=== PATIENT | male | born 1980 | race Caucasian/White ===

== ENCOUNTER 2021-02-18 17:23 | Emergency (ER) | payer SELFPAY ==
--- NOTE | 2021-02-18 19:28 | EDM.PDOC ---
ED HPI GENERAL MEDICAL PROBLEM - General Chief Complaint: Chest Pain Stated Complaint: CHEST PAIN Time Seen by Provider: 02/18/21 17:57 Source of Information: Reports: Patient, RN Notes Reviewed History Limitations: Reports: No Limitations - History of Present Illness INITIAL COMMENTS - FREE TEXT/NARRATIVE: Patient is a 40-year-old male presenting to the emergency department with complaints of a 3-day history of left-sided chest pain as well as cough and congestion. Describes it as a left-sided chest pressure which results in a shooting pain to the area when he moves his left arm. He is concerned as his brother had a heart attack at the age of 26. He denies any dizziness, shortness of breath, fever, chills, nausea, vomiting. Patient does admit to chronic alcoholism. Reports 10 drinks per day. He has had 5 drinks so far today. He also admits to using marijuana but denies any other illicit drugs. Patient does have a history of hypertension, but states he no longer takes his medications. Left Chest Pain Score (Numeric/FACES): 10 - Related Data Allergies Allergy/AdvReac Type Severity Reaction Status Date / Time No Known Allergies Allergy Verified 02/18/21 20:21 Home Meds: Home Meds . [No Known Home Meds] 02/18/21 [History] Past Medical History Cardiovascular History: Reports: High Cholesterol - Past Surgical History Musculoskeletal Surgical History: Reports: Other (See Below) Other Musculoskeletal Surgeries/Procedures:: FO removed from leg Social & Family History - Tobacco Use Tobacco Use Status *Q: Current Every Day Tobacco User Years of Tobacco use: 30 Packs/Tins Daily: 1 - Alcohol Use Number of Drinks Per Day: 10 - Recreational Drug Use Recreational Drug Use: Yes Drug Use in Last 12 Months: Yes Recreational Drug Type: Reports: Marijuana/Hashish Recreational Drug Use Frequency: Daily ED ROS GENERAL - Review of Systems Review Of Systems: Comprehensive ROS is negative, except as noted in HPI. ED EXAM, GENERAL - Physical Exam Exam: See Below Exam Limited By: No Limitations General Appearance: Alert, WD/WN, No Apparent Distress Respiratory/Chest: No Respiratory Distress, Lungs Clear, Normal Breath Sounds, No Accessory Muscle Use, Other (Left anterior chest wall tenderness) Cardiovascular: Normal Peripheral Pulses, Regular Rate, Rhythm, No Edema, No Gallop, No JVD, No Murmur, No Rub GI/Abdominal: Normal Bowel Sounds, Soft, Non-Tender, No Organomegaly, No Distention, No Abnormal Bruit, No Mass Neurological: Alert, Oriented, CN II-XII Intact, Normal Cognition, Normal Gait, Normal Reflexes, No Motor/Sensory Deficits Psychiatric: Normal Affect, Normal Mood Skin Exam: Warm, Dry, Intact, Normal Color, No Rash #1 Interpretation EKG Date: 02/18/21 Time: 17:33 Rhythm: NSR Rate (Beats/Min): 95 [place]: Normal P-Wave: Present QRS: Normal ST-T: Normal QT: Normal Course - Vital Signs Last Recorded V/S: Last Vital Signs Temp 97.2 F 02/18/21 17:38 Pulse 86 02/18/21 17:38 Resp 16 02/18/21 17:38 BP 212/135 H 02/18/21 17:38 Pulse Ox 94 L 02/18/21 17:38 - Orders/Labs/Meds Labs: Laboratory Tests 02/18/21 02/18/21 02/18/21 Range/Units 17:45 17:45 17:45 WBC 9.75 H (4.23-9.07) K/mm3 RBC 3.91 L (4.63-6.08) M/mm3 Hgb 14.4 (13.7-17.5) gm/dl Hct 42.6 (40.1-51.0) % MCV 109.0 H (79.0-92.2) fl MCH 36.8 H (25.7-32.2) pg MCHC 33.8 (32.2-35.5) g/dl RDW Std Deviation 48.1 H (35.1-43.9) fL Plt Count 136 L (163-337) K/mm3 MPV 9.2 L (9.4-12.3) fl Neutrophils % (Manual) 86 H (40-60) % Band Neutrophils % 1 (0-10) % Lymphocytes % (Manual) 7 L (20-40) % Atypical Lymphs % 0 % Monocytes % (Manual) 6 (2-10) % Eosinophils % (Manual) 0 L (0.8-7.0) % Basophils % (Manual) 0 L (0.2-1.2) Platelet Estimate Decreased Plt Morphology Comment See note Anisocytosis 1+ slight Macrocytosis 2+ moderate Ovalocytes 1+ slight RBC Morph Comment Not Reportable PT 10.1 (9.7-12.0) SECONDS INR < 0.93 D-Dimer, Quantitative (0.19-0.50) mg/L Sodium 138 (136-145) mEq/L Potassium 3.5 (3.5-5.1) mEq/L Chloride 101 (98-107) mEq/L Carbon Dioxide 27 (21-32) mEq/L Anion Gap 13.5 (5-15) BUN 4 L (7-18) mg/dL Creatinine 0.7 (0.7-1.3) mg/dL Est Cr Clr Drug Dosing 117.30 mL/min Estimated GFR (MDRD) > 60 (>60) mL/min BUN/Creatinine Ratio 5.7 L (14-18) Glucose 118 H (70-99) mg/dL Calcium 8.6 (8.5-10.1) mg/dL Total Bilirubin 0.4 (0.2-1.0) mg/dL AST 54 H (15-37) U/L ALT 43 (16-63) U/L Alkaline Phosphatase 111 (46-116) U/L Troponin I < 0.017 (0.00-0.056) ng/mL Total Protein 7.6 (6.4-8.2) g/dl Albumin 3.5 (3.4-5.0) g/dl Globulin 4.1 gm/dL Albumin/Globulin Ratio 0.9 L (1-2) SARS-CoV-2 RNA ([facility]IAMA) (NEGATIVE) 02/18/21 02/18/21 Range/Units 17:45 18:00 WBC (4.23-9.07) K/mm3 RBC (4.63-6.08) M/mm3 Hgb (13.7-17.5) gm/dl Hct (40.1-51.0) % MCV (79.0-92.2) fl MCH (25.7-32.2) pg MCHC (32.2-35.5) g/dl RDW Std Deviation (35.1-43.9) fL Plt Count (163-337) K/mm3 MPV (9.4-12.3) fl Neutrophils % (Manual) (40-60) % Band Neutrophils % (0-10) % Lymphocytes % (Manual) (20-40) % Atypical Lymphs % % Monocytes % (Manual) (2-10) % Eosinophils % (Manual) (0.8-7.0) % Basophils % (Manual) (0.2-1.2) Platelet Estimate Plt Morphology Comment Anisocytosis Macrocytosis Ovalocytes RBC Morph Comment PT (9.7-12.0) SECONDS INR D-Dimer, Quantitative 0.40 (0.19-0.50) mg/L Sodium (136-145) mEq/L Potassium (3.5-5.1) mEq/L Chloride (98-107) mEq/L Carbon Dioxide (21-32) mEq/L Anion Gap (5-15) BUN (7-18) mg/dL Creatinine (0.7-1.3) mg/dL Est Cr Clr Drug Dosing mL/min Estimated GFR (MDRD) (>60) mL/min BUN/Creatinine Ratio (14-18) Glucose (70-99) mg/dL Calcium (8.5-10.1) mg/dL Total Bilirubin (0.2-1.0) mg/dL AST (15-37) U/L ALT (16-63) U/L Alkaline Phosphatase (46-116) U/L Troponin I (0.00-0.056) ng/mL Total Protein (6.4-8.2) g/dl Albumin (3.4-5.0) g/dl Globulin gm/dL Albumin/Globulin Ratio (1-2) SARS-CoV-2 RNA ([facility]AMA) Negative (NEGATIVE) - Re-Assessments/Exams Free Text/Narrative Re-Assessment/Exam: Patient is a 40-year-old male presenting to the emergency department with complaints of a 3-day history of left chest pain.Patient is a he describes it as chest pressure which worsens with movement of his left arm. On exam, heart sounds are regular S1-S2. He does have exquisite tenderness to palpation to the intercostal muscles lateral of his left nipple. Lung sounds are clear to auscultation. Initial blood pressure was elevated 212/135, however by the time of my exam it had come down to 151/107. I have ordered blood work, EKG, chest x-ray, and Covid test. 02/18/21 19:25 Hematology significant for WBC minimally elevated at 9.75. Otherwise unremarkable. D-dimer is normal. Troponin is undetectably low. Covid is negative. Chest x-ray shows no acute abnormalities. Last blood pressure was 142/97. Results discussed with patient. He is likely suffering from chest wall muscle strain. Recommend Tylenol and ibuprofen as well as intermittent heat to the area. Discussed return precautions. Discharge instructions as documented. Departure - Departure Time of Disposition: 19:28 Disposition: Home, Self-Care 01 Condition: Good Clinical Impression: Atypical chest pain Instructions: Chest Wall Pain, [id number] Referrals: PCP,None [Primary Care Provider] - Forms: ED Department Discharge Additional Instructions: You were seen in the emergency department today for chest pain for the last 3 days as well as nasal congestion and cough. Work-up included blood work, EKG, chest x-ray, and Covid test. Results of your work-up were found to be normal. You are not having heart attack. You do not have blood clots in your lungs. Your Covid is negative. As we discussed, you are likely suffering from muscle strain of the left chest wall. Recommend Tylenol and ibuprofen as needed for discomfort as well as intermittent heat to the area. If you should experience any new or worsening symptoms, please not hesitate to return to the emergency department for reevaluation. Sepsis Event Note (ED) - Evaluation Sepsis Screening Result: No Definite Risk
--- NOTE | 2021-02-19 08:36 | CR ---
Chest: Portable view of the chest was obtained. Comparison: No prior chest imaging is available. Heart size and mediastinum are within normal limits. Lungs are clear with no acute parenchymal change. No acute osseous abnormality is appreciated. Impression: 1. Nothing acute is seen on portable chest x-ray. Diagnostic code #1
== END 2021-02-18 20:00 | disposition home or self-care (01) ==
LOC: JD.ED 17:23
DX: R07.89 Other chest pain (principal); Z72.0 Tobacco use; Z20.822 Contact with and (suspected) exposure to COVID-19
CPT/HCPCS: 36415; 71045; 71045-26; 80053; 84484; 85007; 85027; 85379; 85610; 93005; 99285-25; U0002

== ENCOUNTER 2021-03-05 19:28 | Emergency (ER) | payer SELFPAY | END 2021-03-05 20:46 | LOC: JD.ED 19:28 | DX: Z53.21 Procedure and treatment not carried out due to patient leaving prior to being seen by health care provider (principal) ==

== ENCOUNTER 2021-04-22 14:12 | Emergency (ER) | payer SELFPAY ==
[2021-04-22] MEDS ORDERED: Sodium Chloride 0.9% 10 ML Syringe FLUSH PRN (16:44)
[2021-04-22] MEDS ORDERED: LORazepam 2 MG/ML SDV IVPUSH ONE (16:52)
[2021-04-22] MEDS ORDERED: Sodium Chloride 0.9% 1,000 ML IV SCH (17:00)
--- NOTE | 2021-04-22 18:11 | EDM.PDOCBH ---
ED HPI GENERAL MEDICAL PROBLEM - General Chief Complaint: Drug or Alcohol Abuse Stated Complaint: ALCOHOL WITHDRAWL Time Seen by Provider: 04/22/21 16:44 Source of Information: Reports: Patient, RN Notes Reviewed - History of Present Illness INITIAL COMMENTS - FREE TEXT/NARRATIVE: Patient is concerned about withdrawal sx. Drinks hard alcohol daily. Last drink "last night". Has been told recently that his liver is "bad" so has not been drinking today. No current chest or abd pain, vomiting. Feels somewhat shaky. - Related Data Allergies Allergy/AdvReac Type Severity Reaction Status Date / Time No Known Allergies Allergy Verified 04/22/21 15:14 Home Meds: Home Meds . [No Known Home Meds] 02/18/21 [History] Past Medical History Cardiovascular History: Reports: High Cholesterol, Hypertension Other Gastrointestinal History: Reports liver issues from [facility] Neurological History: Reports: Seizure Psychiatric History: Reports: Addiction - Infectious Disease History Infectious Disease History: Reports: None - Past Surgical History HEENT Surgical History: Reports: Tonsillectomy Musculoskeletal Surgical History: Reports: Other (See Below) Other Musculoskeletal Surgeries/Procedures:: FO removed from leg Social & Family History - Tobacco Use Years of Tobacco use: 25 Packs/Tins Daily: 1 - Caffeine Use Caffeine Use: Reports: Soda - Alcohol Use Days Per Week of Alcohol Use: 7 Number of Drinks Per Day: 10 Total Drinks Per Week: 70 Date of Last Drink: 04/21/21 Time of Last Drink: 23:30 - Recreational Drug Use Recreational Drug Use: Yes Recreational Drug Type: Reports: Marijuana/Hashish Recreational Drug Use Frequency: Weekly ED ROS GENERAL - Review of Systems Review Of Systems: See Below Constitutional: Denies: Fever, Chills, Diaphoresis HEENT: Reports: No Symptoms Respiratory: Reports: Cough (occassional). Denies: Shortness of Breath, Pleuritic Chest Pain Cardiovascular: Denies: Chest Pain GI/Abdominal: Denies: Abdominal Pain, Diarrhea, Vomiting Musculoskeletal: Reports: No Symptoms Skin: Reports: No Symptoms Neurological: Reports: No Symptoms Psychiatric: Reports: Anxiety ED EXAM, BEHAVIORAL HEALTH - Physical Exam Exam: See Below General Appearance: Alert, No Apparent Distress Throat/Mouth: Normal Inspection Head: Atraumatic Neck: Supple Respiratory/Chest: No Respiratory Distress, Lungs Clear, Normal Breath Sounds Cardiovascular: Regular Rate, Rhythm GI/Abdominal: Soft, Non-Tender Extremities: No: Pedal Edema, Leg Pain Neurological: Alert, Normal Mood/Affect, No Motor/Sensory Deficits Skin Exam: Warm, Dry, Normal color COURSE, BEHAVIORAL HEALTH COMP - Course Vital Signs: Last Vital Signs Temp 99.1 F 04/22/21 15:08 Pulse 75 04/22/21 15:08 Resp 16 04/22/21 15:08 BP 176/132 H 04/22/21 15:08 Pulse Ox 95 04/22/21 15:08 Orders, Labs, Meds: Medications Discontinued Medications Generic Name Dose Route Start Last Admin Trade Name Freq PRN Reason Stop Dose Admin Sodium Chloride 1,000 mls @ 999 mls/hr 04/22/21 17:00 Normal Saline IV ONETIME JOSE Lorazepam 1 mg 04/22/21 16:52 Lorazepam 2 Mg/Ml Sdv IVPUSH 04/22/21 16:53 ONETIME ONE Sodium Chloride 10 ml 04/22/21 16:44 Sodium Chloride 0.9% 10 Ml Syringe FLUSH ASDIRECTED PRN Keep Vein Open Re-Assessment/Re-Exam: 16:30.Just heard from his nurse that pt is not in room, appears to have eloped, I fluid, ativan had been ordered, given, labs still pending. Departure - Departure Time of Disposition: 16:30 Disposition: Eloped 07 Condition: Fair Clinical Impression: Alcohol withdrawal syndrome Qualifiers: Complication of substance-induced condition: uncomplicated Qualified Code(s): F10.230 - Alcohol dependence with withdrawal, uncomplicated - Discharge Information Referrals: PCP,None [Primary Care Provider] - Forms: ED Department Discharge Sepsis Event Note (ED) - Evaluation Sepsis Screening Result: No Definite Risk
== END 2021-04-22 18:22 | disposition left against medical advice (07) ==
LOC: JD.ED 14:12
DX: F10.230 Alcohol dependence with withdrawal, uncomplicated (principal); I10 Essential (primary) hypertension; Z72.0 Tobacco use
CPT/HCPCS: 99283; 99284

== ENCOUNTER 2022-01-10 07:35 | Emergency (ER) | payer MEDICAID ==
[2022-01-10] MEDS ORDERED: HYDROmorphone 0.5 MG/0.5 ML Syringe IVPUSH ONE (07:44)
[2022-01-10] MEDS ORDERED: diphenhydrAMINE 50 MG/ML SDV IVPUSH ONE (07:48)
[2022-01-10] MEDS ORDERED: Metoclopramide 10 MG/2 ML SDV IVPUSH ONE (07:48)
[2022-01-10] MEDS: Dextrose 5%-Lactated Ringers 1,000 ML IV SCH ×2 (07:52→10:25)
[2022-01-10 08:27] LABS: ESTIMATED GFR 64 mL/min (>60)
[2022-01-10] MEDS ORDERED: Lactated Ringers 1,000 ML IV ONE (09:15)
[2022-01-10] MEDS ORDERED: Magnesium Sulfate/Water 4 GM in Premix Bag 1 BAG IV ONE (09:22)
[2022-01-10] MEDS: Potassium Chloride 10 MEQ in Premix Bag 1 BAG IV SCH ×4 (09:31→12:47)
[2022-01-10] MEDS ORDERED: Lactated Ringers 500 ML IV ONE (10:22)
== END 2022-01-10 14:09 | disposition home or self-care (01) ==
LOC: JD.ED 07:35
DX: R11.2 Nausea with vomiting, unspecified (principal); E86.9 Volume depletion, unspecified; E83.42 Hypomagnesemia; E87.2 Acidosis; E87.6 Hypokalemia; E78.00 Pure hypercholesterolemia, unspecified; I10 Essential (primary) hypertension; F17.210 Nicotine dependence, cigarettes, uncomplicated
CPT/HCPCS: 36415; 71045; 80053; 80307; 81001; 82009; 83605; 83690; 83735; 85025; 86140; 96361; 96365; 96366; 96368; 96375; 99284; J1170; J1200; J2765; J3475; J3480; J7120; J7121

== ENCOUNTER 2022-06-13 05:00 | Emergency (ER) | payer MEDICAID ==
[2022-06-13] MEDS ORDERED: Ondansetron 4 MG/2 ML SDV IVPUSH ONE (05:34)
[2022-06-13] MEDS ORDERED: Sodium Chloride 0.9% 1,000 ML IV ONE (05:34)
[2022-06-13] MEDS ORDERED: Loperamide 2 MG Cap PO STA (05:34)
[2022-06-13] MEDS ORDERED: LORazepam 2 MG/ML SDV IVPUSH STA (05:34)
[2022-06-13 06:41] LABS: ESTIMATED GFR 64 mL/min (>60)
[2022-06-13] MEDS ORDERED: Magnesium Sulfate/Water 4 GM in Premix Bag 1 BAG IV ONE (07:03)
[2022-06-13 07:36] LABS: CORONAVIRUS COVID-19 NAA NEGATIVE (NEGATIVE)
[2022-06-13] MEDS ORDERED: Lactated Ringers 1,000 ML IV ONE (08:28)
[2022-06-13] MEDS: Potassium Chloride 10 MEQ in Premix Bag 1 BAG IV SCH ×4 (08:41→12:04)
== END 2022-06-13 13:18 | disposition home or self-care (01) ==
LOC: JD.ED 05:00
DX: R10.84 Generalized abdominal pain (principal); R11.2 Nausea with vomiting, unspecified; E87.6 Hypokalemia; E83.42 Hypomagnesemia; I10 Essential (primary) hypertension; F17.210 Nicotine dependence, cigarettes, uncomplicated; Z79.899 Other long term (current) drug therapy
CPT/HCPCS: 0241U; 36415; 80053; 80306; 80307; 83690; 83735; 85025; 86140; 96361; 96365; 96366; 96367; 96368; 96375; 99284; A9270; J2060; J2405; J3475; J3480; J7030; J7120